=== PATIENT | female | born 1995 | race Caucasian/White ===

== ENCOUNTER 2017-10-10 08:41 | Emergency (ER) | payer OTHER ==
--- NOTE | 2017-10-10 09:15 | EDPHY ---
H & P Smoking Status: Never smoked Time Seen by Provider: 10/10/17 09:02 HPI/ROS: CHIEF COMPLAINT: Abdominal pain, flank pain HISTORY OF PRESENT ILLNESS: 22-year-old female presents to the emergency department with right-sided abdominal pain and flank pain that began abruptly at 7:30 a.m. This morning. The patient has never had pain like this in the past. She denies any known trauma or injury. She feels extremely nauseous although no vomiting. The pain has improved somewhat although has not resolved. She states that she is on continuous control pills and has not been compliant with taking knees and this morning she did note that she woke up with vaginal bleeding. She denies pain in her chest or difficulty breathing. Denies . Denies dysuria, urgency or frequency with urination. Her father had a history of kidney stones. He recently 1 week ago and she states that she has been under lot of stress lately. REVIEW OF SYSTEMS: Constitutional: No fever, no chills. Eyes: No double or blurry vision. ENT: No sore throat. Respiratory: No cough, no shortness of breath. Cardiac: No chest pain. Gastrointestinal: Abdominal and flank pain as above. Nausea. No vomiting or diarrhea. Genitourinary: No dysuria. Musculoskeletal: No neck or back pain. Skin: No rashes. Neurological: No headache. (eNisha Neri) Past Medical/Surgical History: Negative (Neisha Neri) Social History: Single (Neisha Neri) Physical Exam: General Appearance: Alert, no distress. Afebrile. No apparent distress. Eyes: Pupils equal and round. Extraocular motions are all intact. ENT: Mouth: Mucous membranes moist. Respiratory: No wheezing, rhonchi, or rales, lungs are clear to auscultation. Cardiovascular: Regular rate and rhythm. Gastrointestinal: Abdomen is soft. Tenderness with palpation in the right lower quadrant. There is no masses, rebound or guarding noted. No CVA tenderness bilaterally. Neurological: Alert and oriented x 3, cranial nerves II through XII grossly intact Skin: Warm and dry, no rashes. Musculoskeletal: Nontender to palpate along the cervical, thoracic or lumbar spine. Neck is supple. Extremities: Full range of motion and no peripheral edema. Psychiatric: Patient is oriented X 3, there is no agitation. (Neisha Neri) Constitutional: Initial Vital Signs Temperature (C) 37 C 10/10/17 08:46 Heart Rate 74 10/10/17 08:46 Respiratory Rate 16 10/10/17 08:46 Blood Pressure 131/81 H 10/10/17 08:46 O2 Sat (%) 96 10/10/17 08:46 O2 Delivery Mode Room Air Allergies/Adverse Reactions: No Known Allergies Allergy (Unverified 10/10/17 08:45) Home Medications: Medication Instructions Recorded Camrese Lo Tablet 10/10/17 Lexapro 10/10/17 Medical Decision Making - Diagnostics Imaging: Discussed imaging studies w/ call center support representative Radiologist ED Course/Re-evaluation: 22-year-old female presents to the emergency department with right flank and right-sided abdominal pain. Laboratory studies reveal white blood cell count of just over 10,000. Her chemistries were normal. HCG was negative. Urinalysis just reveals trace blood. She is also having some vaginal bleeding from her period. The patient was monitored in the emergency department. She continued to have right lower quadrant abdominal pain with palpation. I was concerned about possible acute appendicitis. I discussed the pros and cons of CT imaging of abdomen pelvis including radiation exposure and the patient agreed. CT imaging reveals evidence of constipation. Normal appearing appendix is noted. This was discussed with the radiologist. Patient felt comfortable being discharged home. I do not think this patient has acute appendicitis or kidney stone. She was encouraged to use symptomatic or supportive care return if she has any other concerns. (Neisha Neri) The patient was evaluated and managed by the physician assistant corporate secretary. I have reviewed this chart and I agree with the findings and plan of care as documented , as indicated by my signature. I am the secondary supervising physician. ( Ada Cordero) Differential Diagnosis: Including but not limited to acute appendicitis, kidney stone, urinary tract infection, pyelonephritis, ovarian cyst, ovarian torsion (Neisha Neri) - Data Points Laboratory Results: Laboratory Results 10/10/17 09:13 10/10/17 09:13 Departure - Departure Disposition: Home, Routine, Self-Care Clinical Impression: Abdominal pain Condition: Good Instructions: Acute Abdominal Pain (ED) Additional Instructions: Abdominal Pain: Return to the Emergency Department immediately for increasing pain, fever, vomiting, or if not completely better in 8-12 hours. Ibuprofen 600mg every 8 hours for pain as directed. Diet and activity as tolerated. Referrals: PRUDENCIO GONZALEZ [Other] - As per Instructions Caleb Bruce DO [Doctor of Osteopathy] - 2-3 days, if not improved (Primary care provider communications representative)
[2017-10-10 09:24] LABS: PLATELET COUNT 231 10^3/uL (150-400)
[2017-10-10] MEDS ORDERED: IOPAMIDOL (ISOVUE-300) 100 ML BTL ONE (10:11)
[2017-10-10 11:45] VITALS: BP 113/80
== END 2017-10-10 11:43 | disposition home or self-care (01) ==
DX: R10.31 Right lower quadrant pain (principal)
CPT/HCPCS: Q9967